=== PATIENT | female | born 1985 | race African-American/Black ===

== ENCOUNTER → 2016-09-09 | Outpatient (CLI) | payer BC ==
[2016-09-13 22:36] LABS: E001-IGE CAT DANDER 0.68 kU/L (Class II); E005-IGE DOG DANDER 2.41 kU/L (Class III); F026-IGE PORK <0.10 kU/L (Class 0); F027-IGE BEEF 0.19 kU/L (Class 0/I); G010-IGE JOHNSON GRASS >100 kU/L (Class VI); G017-IGE BAHIA GRASS >100 kU/L (Class VI); I100-IGE COCKROACHAMERICAN <0.10 kU/L (Class 0); M001-IGE PENICILLIUM CHRYSOGEN 1.35 kU/L (Class II); M002-IGE CLADOSPORIUM HERBARUM <0.10 kU/L (Class 0); M003-IGE ASPERGILLUS FUMIGATUS 2.08 kU/L (Class III); M004-IGE MUCOR RACEMOSUS <0.10 kU/L (Class 0); M006-IGE ALTERNARIA ALTERNATA 0.26 kU/L (Class 0/I); M010-IGE STEMPHYLIUM HERBARUM 1.12 kU/L (Class II); T001-IGE MAPLE/BOX ELDER 0.24 kU/L (Class 0/I); T003-IGE BIRCH SILVER 1.34 kU/L (Class II); T006-IGE CEDAR MOUNTAIN 0.15 kU/L (Class 0/I); T007-IGE OAK WHITE 1.26 kU/L (Class II); T008-IGE ELM AMERICAN (WHITE 0.81 kU/L (Class II); T011-IGE MAPLE LEAF SYCAMORE 1.41 kU/L (Class III); T211-IGE SWEET GUM 0.41 kU/L (Class I); W001-IGE RAGWEED SHORT/COMMO 4.78 kU/L (Class IV); W006-IGE MUGWORT 1.66 kU/L (Class III); W018-IGE SHEEP SORREL(DOCK) 1.72 kU/L (Class III); W020-IGE NETTLE 0.79 kU/L (Class II)
[2016-09-14 07:09] LABS: F052-IGE CHOCOLATE/COCOA <0.10 kU/L (Class 0)
== END ==
LOC: OD 12:01
PROVIDERS: ATTEND Otolaryngology
DX: J30.89 Other allergic rhinitis (principal)
CPT/HCPCS: 36415; 86003

== ENCOUNTER 2016-11-27 22:55 | Emergency (ER) | payer BC ==
[2016-11-27 23:01] VITALS: BP 127/83
[2016-11-27] MEDS ORDERED: PROMETHAZINE HCL 25 MG TABLET PO ONE (23:43)
[2016-11-27] MEDS ORDERED: DIPHENHYDRAMINE HCL 25 MG CAPSULE PO ONE (23:43)
[2016-11-27] MEDS ORDERED: AMOXICILLIN TRIHYDRATE 500 MG CAPSULE PO ONE (23:44)
--- NOTE | 2016-11-27 23:50 | ER Document Report ---
ED General - General Chief Complaint: Headache Stated Complaint: HEADACHE Time Seen by Provider: 11/27/16 23:36 Notes: Patient is a 31-year-old female presents with complaint of toothache and headache. She says the headaches are something that she deals with on a consistent basis. They are always in her bilateral confucianist area and then she has pressure come across her sinuses and between her eyes. She says that she has a lot of sinus issues. She says that she is felt to take. Her left with some tooth is coming in awkward. She says this is been hurting her more and making her headaches worse as well. She has been to see a oral surgeon. She has missed 2 appointments with the oral surgeon and therefore they will not give her another appointment just to find a new dentist. She is taking tramadol , Vicodin, and has been placing BC powder over the tooth itself. No difficulty breathing or swallowing. No fevers. No other complaints at this time. No focal weakness or numbness. No vomiting. TRAVEL OUTSIDE OF THE [place] IN LAST 30 DAYS: No - Related Data Allergies/Adverse Reactions: No Known Allergies Allergy (Unverified 04/16/16 08:41) Past Medical History - Social History Smoking Status: Current Every Day Smoker Chew tobacco use (# tins/day): No Frequency of alcohol use: Social Drug Abuse: None Family History: Reviewed & Not Pertinent Patient has suicidal ideation: No Patient has homicidal ideation: No - Past Medical History Cardiac Medical History: Denies: Hx Coronary Artery Disease, Hx Heart Attack, Hx Hypertension Pulmonary Medical History: Denies: Hx Asthma, Hx COPD, Hx Pneumonia Neurological Medical History: Reports: Hx Migraine. Denies: Hx Cerebrovascular Accident, Hx Seizures Renal/ Medical History: Denies: Hx Peritoneal Dialysis Musculoskeltal Medical History: Denies Hx Arthritis Past Surgical History: Reports: Hx Cholecystectomy. Denies: Hx Hysterectomy - Immunizations Hx Diphtheria, Pertussis, Tetanus Vaccination: No Review of Systems - Review of Systems Notes: My Normal Review Basic REVIEW OF SYSTEMS: CONSTITUTIONAL : Denies fever, chills, or sweats. Denies recent illness. EENT: Tooth pain CARDIOVASCULAR: Denies chest pain. RESPIRATORY: Denies cough, cold, or chest congestion. Denies shortness of breath, difficulty breathing, or wheezing. GASTROINTESTINAL: Denies abdominal pain. Denies nausea, vomiting, or diarrhea. Denies constipation. Last BM: MUSCULOSKELETAL: Denies neck or back pain or joint pain or swelling. SKIN: Denies rash or skin lesions. NEUROLOGICAL: Denies altered mental status or loss of consciousness. Has a headache. Denies weakness or paralysis or loss of use of either side. Denies problems with gait or speech. Denies sensory or motor loss. ALL OTHER SYSTEMS REVIEWED AND NEGATIVE. Physical Exam - Vital signs Vitals: Temp Pulse Resp BP Pulse Ox 98.0 F 87 16 127/83 H 99 11/27/16 23:00 11/27/16 23:00 11/27/16 23:00 11/27/16 23:00 11/27/16 23:00 - Notes Notes: General Appearance: Well nourished, alert, cooperative, no acute distress, mild to moderate obvious discomfort. Vitals: reviewed, See vital signs table. Head: no swelling or tenderness to the head Eyes: PERRL, EOMI, Conjuctiva clear Mouth: Left lower wisdom tooth is coming in an awkward angle. No gingival swelling. Patient does have white powder type erosion of the gumline from where she has been placing BC powder over the area. Throat: No tonsillar inflammation, No airway obstruction, No lymphadenopathy Neck: Supple, no neck tenderness Extremities: strength 5/5 in all extremities, Skin: warm, dry, appropriate color, no rash Neuro: speech clear, oriented x 3, normal affect, responds appropriately to questions. Cranial nerves II through XII are intact. Distal sensation intact. Patient was lower extremities without difficulty. Course - Vital Signs Vital signs: Temp Pulse Resp BP Pulse Ox 98.0 F 87 16 127/83 H 99 11/27/16 23:00 11/27/16 23:00 11/27/16 23:00 11/27/16 23:00 11/27/16 23:00 - Transfer of Care Notes: 11/27/16 23:55 Patient will be placed on amoxicillin for the tooth. I will start her on Phenergan with Benadryl to help deal with her headaches. I encourage her to stop taking multiple different pain medications. I informed it is okay to take BC powder but she should take it in a normal manner and not just applied to the gum and tooth as this will cause more damage to the gumline itself. I encouraged her to follow-up closely with the dentist. Encouraged to return to ER if she has worsening pain or feels unwell. Patient agrees with plan and will be discharged home. Dictation of this chart was performed using voice recognition software; therefore, there may be some unintended grammatical errors. Discharge - Discharge Clinical Impression: Toothache Headache Qualifiers: Headache type: unspecified Headache chronicity pattern: episodic headache Intractability: not intractable Qualified Code(s): R51 - Headache Condition: Good Disposition: HOME, SELF-CARE Additional Instructions: Please follow up closely with a dentist. Please return to the ER immediately if you develop worsening pain, facial swelling, vomiting, fevers, or feel uwnell. Take 25mg of Benadryl with 1 tab of phenergan every 6 hours for headache. The combination of Benadryl with phenergan will make you sleepy. Do not drive or operate machinery after taking these medications. Prescriptions: Amoxicillin Trihydrate [Amoxil 500 mg Capsule] 500 mg PO TID #21 cap Promethazine HCl [Phenergan 25 mg Tablet] 1 tab PO Q6H PRN #15 tablet PRN Reason:
== END 2016-11-28 00:15 | disposition home or self-care (01) ==
LOC: ER 22:55
DX: R51 Headache (principal); K08.89 Other specified disorders of teeth and supporting structures; F17.200 Nicotine dependence, unspecified, uncomplicated
CPT/HCPCS: 99283

== ENCOUNTER 2017-01-26 15:00 | Emergency (ER) | payer BC ==
[2017-01-26 15:23] VITALS: BP 138/89
--- NOTE | 2017-01-26 15:58 | ER Document Report ---
HPI - HPI Patient complains to provider of: Left sided neck and back pain Onset: Last week Onset/Duration: Gradual Quality of pain: Achy Severity: Moderate Pain Level: 3 Context: Patient complains of left-sided neck and back pain for about 1 week. Patient currently works 3 jobs and she is not sure if she may have lifted something wrong or any other known injury. She reports history of back spasms in the past. Denies recent illness, no fever. Patient is requesting a work note until next Wednesday. Associated Symptoms: None Exacerbated by: Movement Relieved by: Remaining still Similar symptoms previously: Yes Recently seen / treated by doctor: No - ROS ROS below otherwise negative: Yes Systems Reviewed and Negative: Yes All other systems reviewed and negative - CONSTITUTIONAL Constitutional: DENIES: Fever - EENT EENT: DENIES: Congestion - NEURO Neurology: DENIES: Headache - CARDIOVASCULAR Cardiovascular: DENIES: Chest pain - RESPIRATORY Respiratory: DENIES: Trouble Breathing - GASTROINTESTINAL Gastrointestinal: DENIES: Abdominal Pain - MUSCULOSKELETAL Musculoskeletal: REPORTS: Back Pain, Neck Pain - DERM Skin Color: Normal Skin Problems: None Past Medical History - General Information source: Patient - Social History Smoking Status: Current Every Day Smoker Cigarette use (# per day): Yes Frequency of alcohol use: Occasional Drug Abuse: None Lives with: Family Family History: Reviewed & Not Pertinent Patient has suicidal ideation: No Patient has homicidal ideation: No Pulmonary Medical History: Reports: Hx Asthma - seasonal Neurological Medical History: Reports: Hx Migraine Past Surgical History: Reports: Hx Cholecystectomy - Immunizations Hx Diphtheria, Pertussis, Tetanus Vaccination: No Vertical Provider Document - CONSTITUTIONAL Agree With Documented VS: Yes General Appearance: WD/WN, No Apparent Distress - INFECTION CONTROL TRAVEL OUTSIDE OF THE [place] IN LAST 30 DAYS: No - HEENT HEENT: Atraumatic, Normocephalic - NECK Neck: Normal Inspection, Supple - RESPIRATORY Respiratory: Breath Sounds Normal, No Respiratory Distress O2 Sat by Pulse Oximetry: 99 - CARDIOVASCULAR Cardiovascular: Regular Rate, Regular Rhythm - GI/ABDOMEN Gastrointestinal: Abdomen Soft - MUSCULOSKELETAL/EXTREMETIES Musculoskeletal/Extremeties: MAEW, Tender - Left cervical muscles across the left shoulder. Also tender L spine and paraspinal muscles. Patient feels a pulling sensation to left side of back with straight leg raises. - NEURO Level of Consciousness: Awake, Alert, Appropriate - DERM Integumentary: Warm, Dry Course - Vital Signs Vital signs: Temp Pulse Resp BP Pulse Ox 98.3 F 78 16 138/89 H 99 01/26/17 15:21 01/26/17 15:21 01/26/17 15:21 01/26/17 15:21 01/26/17 15:21 Discharge - Discharge Clinical Impression: Cervical strain Qualifiers: Encounter type: initial encounter Qualified Code(s): S16.1XXA - Strain of muscle, fascia and tendon at neck level, initial encounter Back pain Qualifiers: Back pain location: low back pain Chronicity: acute Back pain laterality: left Sciatica presence: without sciatica Qualified Code(s): M54.5 - Low back pain Condition: Good Disposition: HOME, SELF-CARE Instructions: Ice Packs ([facility]), Oral Narcotic Medication ([facility]), Warm Packs ([facility]) , Muscle Strain ([facility]) Additional Instructions: Take meds as prescribed Ibuprofen that you already have at home 3 times a day. Ice or heat packs No heavy lifting. Follow-up with your doctor if not better by Wednesday, earlier if symptoms worsen. Return as needed Prescriptions: Hydrocodone/Acetaminophen [[place] 5-325 mg Tablet] 1 tab PO PRN PRN #15 tablet PRN Reason: Metaxalone [Skelaxin 800 mg Tablet] 800 mg PO ASDIR PRN #20 tablet PRN Reason: Forms: Return to Work
== END 2017-01-26 16:24 | disposition home or self-care (01) ==
LOC: ER 15:00
DX: S16.1XXA Strain of muscle, fascia and tendon at neck level, initial encounter (principal); M54.5 Low back pain; M54.2 Cervicalgia; M54.9 Dorsalgia, unspecified; F17.210 Nicotine dependence, cigarettes, uncomplicated; X50.9XXA Other and unspecified overexertion or strenuous movements or postures, initial encounter
CPT/HCPCS: 99283

== ENCOUNTER 2017-02-19 16:23 | Emergency (ER) | payer BC ==
--- NOTE | 2017-02-19 17:50 | ER Document Report ---
HPI - HPI Patient complains to provider of: Back pain Onset: Other Onset/Duration: Intermittent Quality of pain: Achy Severity: Moderate Pain Level: 4 Context: Patient states initial injury to back was back in January, and she was seen at the urgent care across from [facility]. X-ray showed no abnormality. Continues to have intermittent mid to low back pain without new injury. Denies loss of control of bowels or bladder. Has not followed up with her primary care doctor. Associated Symptoms: None Exacerbated by: Movement Relieved by: Remaining still Similar symptoms previously: Yes Recently seen / treated by doctor: Yes - january - ROS ROS below otherwise negative: Yes Systems Reviewed and Negative: Yes All other systems reviewed and negative - CONSTITUTIONAL Constitutional: DENIES: Fever - EENT EENT: DENIES: Congestion - NEURO Neurology: DENIES: Headache - CARDIOVASCULAR Cardiovascular: DENIES: Chest pain - RESPIRATORY Respiratory: DENIES: Trouble Breathing - GASTROINTESTINAL Gastrointestinal: DENIES: Abdominal Pain - URINARY Urinary: DENIES: Dysuria, Urgency, Frequency - MUSCULOSKELETAL Musculoskeletal: REPORTS: Back Pain - DERM Skin Color: Normal Past Medical History - General Information source: Patient - Social History Smoking Status: Current Every Day Smoker Cigarette use (# per day): Yes Frequency of alcohol use: Occasional Drug Abuse: None Lives with: Family Family History: Reviewed & Not Pertinent Pulmonary Medical History: Reports: Hx Asthma - seasonal Neurological Medical History: Reports: Hx Migraine Past Surgical History: Reports: Hx Cholecystectomy - Immunizations Hx Diphtheria, Pertussis, Tetanus Vaccination: No Vertical Provider Document - CONSTITUTIONAL Agree With Documented VS: Yes Exam Limitations: No Limitations General Appearance: WD/WN, No Apparent Distress - INFECTION CONTROL TRAVEL OUTSIDE OF THE [place] IN LAST 30 DAYS: No - HEENT HEENT: Atraumatic, Normocephalic - RESPIRATORY Respiratory: Breath Sounds Normal, No Respiratory Distress O2 Sat by Pulse Oximetry: 99 - CARDIOVASCULAR Cardiovascular: Regular Rate, Regular Rhythm - BACK Notes: Tender mid spine to upper lumbar spine and paraspinous muscles. Mild discomfort with leg raises bilaterally. No saddle anesthesia. - MUSCULOSKELETAL/EXTREMETIES Musculoskeletal/Extremeties: MAEW - NEURO Level of Consciousness: Awake, Alert, Appropriate - DERM Integumentary: Warm, Dry Course - Re-evaluation Re-evalutation: 02/19/17 17:50 Patient refused Toradol injection. Discussed with patient that the emergency room does not refill pain medications as she was given Glendo in the past. - Vital Signs Vital signs: Temp Pulse Resp BP Pulse Ox 98.1 F 88 18 127/81 H 99 02/19/17 16:27 02/19/17 16:27 02/19/17 16:27 02/19/17 16:27 02/19/17 16:27 Discharge - Discharge Clinical Impression: Back pain Qualifiers: Back pain location: back pain in unspecified location Chronicity: unspecified Back pain laterality: midline Qualified Code(s): M54.89 - Other dorsalgia Condition: Good Disposition: HOME, SELF-CARE Instructions: Ice Packs ([facility]), Warm Packs ([facility]), Low Back Pain ([facility]) Additional Instructions: meds as prescribed OTC ibuprofen or aleve for pain you must follow up with your PCP for further evaluation possible referral for ongoing back pain without new injury. return as needed Prescriptions: Cyclobenzaprine HCl [Flexeril 5 mg Tablet] 5 mg PO TID #15 tablet Prednisone [Deltasone 10 mg Tablet] 10 mg PO ASDIR #21 tablet Tramadol HCl 50 mg PO PRN PRN #10 tablet PRN Reason: Forms: Return to Work
[2017-02-19 18:18] VITALS: BP 120/72
== END 2017-02-19 18:14 | disposition home or self-care (01) ==
LOC: ER 16:23
DX: M54.89 Other dorsalgia (principal); M54.9 Dorsalgia, unspecified; F17.210 Nicotine dependence, cigarettes, uncomplicated
CPT/HCPCS: 99283

== ENCOUNTER 2019-02-26 00:22 | Emergency (ER) | payer BC ==
[2019-02-26] MEDS ORDERED: NORMAL SALINE 1000 ML 1,000 ML IV ONE (02:42)
[2019-02-26] MEDS ORDERED: MORPHINE SULFATE 10 MG/ML INJ IV ONE ×2 (02:42→06:35)
[2019-02-26] MEDS ORDERED: ONDANSETRON HCL INJ/PF 4 MG/2 ML SDV IV ONE ×2 (02:42→06:35)
--- NOTE | 2019-02-26 02:47 | ER Document Report ---
ED GI/ - General Chief Complaint: Abdominal Pain Stated Complaint: ABDOMINAL PAIN Time Seen by Provider: 02/26/19 02:36 Primary Care Provider: [facility] [Provider Group] - Follow up as needed Notes: Patient is a 34-year-old female that comes to the emergency department for chief complaint of sharp pains in her lower abdomen on both sides and in the middle. She reports nausea but denies vomiting. She had a loose bowel movement yesterday. She denies fever. She has had a cholecystectomy, she denies abdominal surgeries otherwise. She denies any daily medications. She is sexually active. She denies dysuria, vaginal bleeding or discharge. She reports some pain in her back on both sides in the lower part as well. TRAVEL OUTSIDE OF THE [place] IN LAST 30 DAYS: No - Related Data Allergies/Adverse Reactions: No Known Allergies Allergy (Verified 02/19/17 16:28) Past Medical History - General Information source: Patient - Social History Smoking Status: Current Some Day Smoker Frequency of alcohol use: None Drug Abuse: None Lives with: Family Family History: Reviewed & Not Pertinent Patient has suicidal ideation: No Patient has homicidal ideation: No Pulmonary Medical History: Reports: Hx Asthma - seasonal Neurological Medical History: Reports: Hx Migraine Renal/ Medical History: Denies: Hx Peritoneal Dialysis Past Surgical History: Reports: Hx Cholecystectomy - Immunizations Hx Diphtheria, Pertussis, Tetanus Vaccination: Yes Review of Systems - Review of Systems Constitutional: No symptoms reported EENT: No symptoms reported Cardiovascular: No symptoms reported Respiratory: No symptoms reported Gastrointestinal: See HPI Genitourinary: See HPI Female Genitourinary: No symptoms reported Musculoskeletal: No symptoms reported Skin: No symptoms reported Hematologic/Lymphatic: No symptoms reported Neurological/Psychological: No symptoms reported Physical Exam - Vital signs Vitals: Temp Pulse Resp BP Pulse Ox 98.4 F 90 16 110/70 98 02/26/19 00:27 02/26/19 00:27 02/26/19 00:27 02/26/19 00:27 02/26/19 00:27 - Notes Notes: GENERAL: Alert, interacts well. No acute distress. HEAD: Normocephalic, atraumatic. EYES: Pupils equal, round, and reactive to light. Extraocular movements intact. ENT: Oral mucosa moist, tongue midline. Oropharynx unremarkable. Airway patent. LUNGS: Clear to auscultation bilaterally, no wheezes, rales, or rhonchi. No respiratory distress. HEART: Regular rate and rhythm. No murmur ABDOMEN: Tender in the suprapubic area, mid lower abdomen, and bilateral lower abdomen. No specific guarding. Upper abdomen is completely benign. GENITOURINARY: Normal external exam, no cervical motion tenderness, no noted discharge, no concerning findings or lesions. Exam performed with Susan HDEZ at bedside. EXTREMITIES: Moves all 4 extremities spontaneously. No edema, normal radial and dorsalis pedis pulses bilaterally. No cyanosis. BACK: no cervical, thoracic, lumbar midline tenderness. No saddle anesthesia, normal distal neurovascular exam. NEUROLOGICAL: Alert and oriented x3. Normal speech. Cranial nerves II through XII grossly intact. PSYCH: Normal affect, normal mood. SKIN: Warm, dry, normal turgor. No rashes or lesions noted. Course - Re-evaluation Re-evalutation: Patient looks well. However she does have lower abdominal tenderness on both sides. Upper abdomen is benign. No CVA tenderness. No fever. Unremarkable vital signs. There was a long delay in obtaining laboratory results because of laboratory back-up, however finding this was obtained. CBC shows leukocytosis at 20,000, elevation of neutrophils but no bandemia. Chemistry nonspecific. test negative. Urinalysis indicates infection, culture placed. Started on Rocephin. Wet mount shows bacteria and white blood cells although this is inconsistent with patient's very benign appearing pelvic examination. Gonorrhea and Chlamydia are negative. CAT scan was performed to rule out acute appendicitis because of leukocytosis and repeated pain on recheck of patient's abdomen. CAT scan showing 3.5 cm abnormality but no acute appendicitis, no infection, no concerning findings otherwise. I discussed with patient, decision was made to perform ultrasound. Ultrasound showing uterine fibroid. No other concerning findings. Discussed with patient. Decision was made to treat her with doxycycline and Flagyl for both urine and pelvic coverage, she will follow-up with primary care/[facility], she will return if she worsens in any way. Patient states understanding and agreement. - Vital Signs Vital signs: Temp Pulse Resp BP Pulse Ox 98.2 F 85 16 106/62 98 02/26/19 06:15 02/26/19 06:15 02/26/19 06:15 02/26/19 06:15 02/26/19 06:15 - Laboratory Result Diagrams: 02/26/19 03:25 02/26/19 03:25 Laboratory results interpreted by me: 02/26/19 02/26/19 02/26/19 03:25 03:25 03:44 WBC 20.4 H Lymphocytes % (Manual) 9 L Monocytes % (Manual) 14 H Abs Neuts (Manual) 15.5 H Abs Monocytes (Manual) 2.9 H Potassium 3.5 L Total Bilirubin 1.4 H Urine Blood SMALL H Ur Leukocyte Esterase LARGE H Discharge - Discharge Clinical Impression: Lower abdominal pain Condition: Stable Disposition: HOME, SELF-CARE Additional Instructions: Your evaluation shows a urinary tract infection, you are being covered for potential pelvic infection although no STDs or concerning findings are seen in regards to this. Your ultrasound shows a fibroid on the outside of your uterus as well. Follow-up with [facility] for this. Take antibiotics as prescribed, take pain medication if needed, take nausea medication if needed, drink plenty fluids and rest. Symptoms should resolve with time. Return if you worsen including vomiting, fever, severe worsening pain, or any other concerning or worsening symptoms. Prescriptions: Doxycycline Hyclate 100 mg PO BID #14 capsule Metronidazole [Flagyl 500 mg Tablet] 500 mg PO BID 7 Days #14 tablet Hydrocodone/Acetaminophen [[place] 5-325 mg Tablet] 1 - 2 tab PO ASDIR PRN #12 tablet PRN Reason: Ondansetron [Zofran Odt 4 mg Tablet] 1 - 2 tab PO Q4H PRN #15 tab.rapdis PRN Reason: For Nausea/Vomiting Forms: Return to Work Referrals: [facility] [Provider Group] - Follow up as needed
[2019-02-26 04:33] LABS: HEMATOCRIT 37.8 % (36.0-47.0); HEMOGLOBIN 12.5 g/dL (12.0-15.5); MEAN CORPUSCULAR HEMOGLOBIN 29.6 pg (27.0-33.4); MEAN CORPUSCULAR VOLUME 90 fl (80-97); PLATELET COUNT 301 10^3/uL (150-450); RED CELL DISTRIBUTION WIDTH 13.4 % (11.5-14.0); WHITE BLOOD COUNT 20.4 10^3/uL (4.0-10.5)
[2019-02-26 04:35] LABS: BACTERIA (WET MOUNT) 4+ BACTERIA SEEN; EPITHELIALS (WET MOUNT) 4+ EPITHELIALS SEEN; RBCS (WET MOUNT) NO RBCS SEEN; T.VAGINALIS (WET MOUNT) COULD NOT PERFORM; WBCS (WET MOUNT) 3+ WBCS SEEN; YEAST (WET MOUNT) NO YEAST SEEN
[2019-02-26 04:45] LABS: APPEARANCE,URINE SLIGHTLY-CLOUDY; BILIRUBIN,URINE NEGATIVE (NEGATIVE); COLOR,URINE YELLOW; GLUCOSE, URINE NEGATIVE (NEGATIVE); KETONES,URINE NEGATIVE (NEGATIVE); LEUKOCYTE ESTERASE,URINE LARGE (NEGATIVE); NITRITE,URINE NEGATIVE (NEGATIVE); PROTEIN,URINE NEGATIVE (NEGATIVE); URINE SPECIFIC GRAVITY 1.005; UROBILINOGEN,URINE NEGATIVE mg/dL (<2.0)
[2019-02-26 04:52] LABS: ALBUMIN 4.3 g/dL (3.5-5.0); ALKALINE PHOSPHATASE 82 U/L (38-126); ANION GAP 13 (5-19); ASPARTATE AMINO TRANSFERASE 18 U/L (14-36); BILIRUBIN,DIRECT 0.3 mg/dL (0.0-0.4); BILIRUBIN,TOTAL 1.4 mg/dL (0.2-1.3); BLOOD UREA NITROGEN 7 mg/dL (7-20); CALCIUM 9.7 mg/dL (8.4-10.2); CARBON DIOXIDE 24 mmol/L (22-30); CHLORIDE 102 mmol/L (98-107); GLUCOSE 87 mg/dL (75-110); POTASSIUM 3.5 mmol/L (3.6-5.0); TOTAL PROTEIN 7.2 g/dL (6.3-8.2)
[2019-02-26 04:56] LABS: ABSOLUTE MONOCYTES # (MANUAL) 2.9 10^3/uL (0.1-1.4); BASOPHILS % (MANUAL) 0 % (0-2); EOSINOPHILS % (MANUAL) 0 % (0-6); LYMPHOCYTES % (MANUAL) 9 % (13-45); MONOCYTES % (MANUAL) 14 % (3-13); RBC MORPHOLOGY COMMENT NORMO-CYTIC/CHROMIC; SEGMENTED NEUTROPHILS % (MAN) 76 % (42-78); TOTAL CELLS COUNTED 100
[2019-02-26 04:57] LABS: PLATELET COMMENT ADEQUATE
[2019-02-26 05:58] LABS: CHLAM PCR NOT DETECTED (NOT DETECT)
--- NOTE | 2019-02-26 06:30 | RADIOLOGY REPORT (SQ) ---
EXAM: CT abdomen and pelvis with IV contrast CLINICAL DATA: 34-year-old female with lower abdominal pain and leukocytosis TECHNICAL DATA: Axial CT imaging of the abdomen and pelvis was performed following the administration of intravenous contrast.. Sagittal and coronal reconstructed images were then performed. The CT study is performed according to ALARA (as low as reasonably achievable) or ALARA/IMAGE GENTLY, with automatic adjustment of mA and/or kV according to patient size. Performed on: 02/26/2019 at 5:57 AM. Comparison: None FINDINGS: Lung bases: The lung bases are clear. Liver:The liver is normal in size and configuration. No focal hepatic abnormalities are identified. Liver attenuation is within normal limits. Spleen:The spleen is normal is size, configuration and attenuation. Gallbladder and bile duct: The gallbladder is well-visualized and is likely surgically absent. There is no biliary ductal dilatation. Pancreas: The pancreas is grossly normal in size and configuration. Adrenal Glands:The adrenal glands are normal in size and configuration. Kidneys:The kidneys are normal in size and configuration. There is no evidence of hydronephrosis. There is no evidence of nephrolithiasis. No definite solid or cystic renal mass lesions are identified. Stomach:The stomach is grossly normal. There is no definite hiatal hernia. Bowel:The bowel gas pattern is non specific and non obstructive. Appendix: The appendix is normal. Free air:There is no evidence of free air. Free fluid: There is no evidence of free fluid. Vasculature: The aorta is normal in caliber and contour. The inferior vena cava is grossly unremarkable. Lymphadenopathy: No pathologic lymphadenopathy is identified. Bladder: The bladder is well distended and smooth in contour. Reproductive: The uterus is grossly within normal limits. There is a 3.4 x 3.0 x 3.1 cm solid mass in the anterior left hemipelvis possibly ovarian in nature. An exophytic uterine fibroid is a consideration. Additionally, there is a 2.0 x 1.6 x 1.5 cm right adnexal cyst likely representing a dominant ovarian follicle. Bones: No acute osseous abnormalities are identified. Soft tissues: No focal soft tissue abnormalities are identified. IMPRESSION: 1. There is a 3.4 cm solid mass in the anterior left hemipelvis possibly ovarian in nature. An exophytic uterine fibroid is a consideration. Recommend prompt follow-up with pelvic ultrasound. 2. Nonvisualization of the gallbladder which is likely surgically absent. 3. Otherwise, no evidence of acute intra-abdominal or intrapelvic pathology. There is no CT evidence of acute appendicitis, urinary tract obstruction or bowel obstruction
[2019-02-26] MEDS ORDERED: CEFTRIAXONE 1 GM/D5W RTU 1 GM/50 ML RTUPB IV ONE (06:31)
--- NOTE | 2019-02-26 08:02 | RADIOLOGY REPORT (SQ) ---
EXAM: Ultrasound pelvis transvaginal CLINICAL DATA: 34-year-old female with abdominal pain and leukocytosis and left adnexal mass on recent CT scan. TECHNICAL DATA: Ultrasound imaging of the pelvis was performed endovaginally on 02/26/2019 at 7:11 AM. COMPARISONS: CT abdomen and pelvis performed on 02/26/2019 at 5:57 AM FINDINGS: The uterus is normal in size, shape and echogenicity and measures 8.4 x 4.1 x 4.6 cm. The endometrial complex measures 0.7 cm in thickness. There is no endometrial fluid. The cervix measures 3 cm in length. There is a hypoechoic mass arising from the region of the uterine fundus to the left of midline with minimal internal Doppler vascularity measuring 3.3 x 3.0 x 3.5 cm corresponding to the abnormality noted on the prior CT scan. An exophytic subserosal uterine fibroid is suspected. The right ovary measures 3.2 x 2.6 x 2.9 cm. The right ovary contains normal follicles. There is a dominant follicle measuring 2.0 x 1.4 x 1.8 cm. Doppler imaging demonstrates normal pulsed and color Doppler flow. The left ovary measures 3.1 x 1.5 x 1.3 cm. The left ovary contains normal follicles. There is a dominant follicle measuring 1.1 x 0.6 x 1.1 cm. Doppler imaging demonstrates normal pulsed and color Doppler flow. There is no free fluid in the pelvis. IMPRESSION: 1. Sonographic findings suggest an exophytic subserosal uterine fibroid arising from the fundus to the left of midline with a maximum dimension of 3.5 cm. 2. Dominant follicle arising from the right ovary with a maximum dimension of 2 cm. No follow-up imaging is recommended. 3. Otherwise, unremarkable pelvic ultrasound.
[2019-02-26 08:31] VITALS: BP 117/63
== END 2019-02-26 08:43 | disposition home or self-care (01) ==
LOC: ER 00:22
DX: R10.30 Lower abdominal pain, unspecified (principal); R11.0 Nausea; F17.200 Nicotine dependence, unspecified, uncomplicated; Z90.49 Acquired absence of other specified parts of digestive tract
CPT/HCPCS: 96376; 99284; 96361; 96375; 96365; 36415; 87210; 85025; 81025; 80053; 81001; 87491; 87591; 76830; 93976; 74177; J2270; J2405; J7030; J0696

== ENCOUNTER 2020-04-15 08:40 | Day surgery (SDC) | payer BC ==
[~2020-04-15 08:40] MED LIST: DEXAMETHASONE SOD PHOS INJ 10 MG/1 ML VIAL ONE; DEXMEDETOMIDINE INJ 80 MCG/20 ML VIAL IV ONE; EPHEDRINE SULFATE INJ 50 MG/1 ML AMPULE ONE; FAMOTIDINE INJ/PF 20 MG/2 ML SDV IV ONE; FENTANYL CITRATE INJ/PF 100 MCG/2 ML AMPUL ONE; GLYCOPYRROLATE INJ 0.4 MG/2 ML VIAL ONE; LACTATED RINGERS 1000 ML IV PRN; LIDOCAINE 0.5% INJ-PF (5 MG/ML) 50 ML SDV SUBCUT PRN; LIDOCAINE 2% INJ-PF (100 MG/5 ML) SYRINGE ONE; MIDAZOLAM 2 MG/2 ML INJ ONE; MORPHINE SULFATE 10 MG/ML INJ ONE; ONDANSETRON HCL INJ/PF 4 MG/2 ML SDV ONE; PROPOFOL INJ 200 MG/20 ML VIAL IV ONE; SUCCINYLCHOLINE CHLORIDE INJ 200 MG/10 ML VIAL ONE
[2020-04-15] MEDS ORDERED: CEFAZOLIN 2 GM/D5W RTU 2 GM/50 ML RTUPB IV PRN (09:29)
[2020-04-15] MEDS ORDERED: SCOPOLAMINE HYDROBROMIDE 1.5 MG PATCH.TD72 TD PRN (09:30)
[2020-04-15] MEDS ORDERED: BACITRACIN ZINC OINTMENT 15 GM ONE (09:49)
[2020-04-15] MEDS ORDERED: BUPIVACAINE HCL 0.5%/EPI 1:200000 INJ 1.8 ML CARTRIDGE ONE (09:49)
[2020-04-15] MEDS ORDERED: OXYMETAZOLINE HCL 0.05% NASAL SPRAY 15 ML BOTTLE ONE (09:49)
[2020-04-15] MEDS ORDERED: MINERAL OIL (STERILE) 10 ML VIAL ONE (09:49)
[2020-04-15] MEDS ORDERED: LIDOCAINE 1%/EPINEPHRINE INJ 20 ML VIAL ONE (10:28)
[2020-04-15] MEDS ORDERED: ACETAMINOPHEN 1,000 MG/100 ML RTUPB IV ONE (13:25)
--- NOTE | 2020-04-20 08:26 | Operative Report ---
[facility]: DATE OF OPERATION: PREOPERATIVE DIAGNOSES: 1. Acute recurrent sinusitis/ARS 2. Nasal septal deviation, Acquired 3. Bilateral inferior turbinate hypertrophy 4. Nasal Deformities, Acquired 5. Chronic Nasal Dyspnea 6. Chronic rhinosinusitis/CRS 7. Right middle turbinate hypertrophy 8. Left middle turbinate lissy bullosa POSTOPERATIVE DIAGNOSES: 1. Acute recurrent sinusitis/ARS 2. Nasal septal deviation, Acquired 3. Bilateral inferior turbinate hypertrophy 4. Nasal Deformities, Acquired 5. Chronic Nasal Dyspnea 6. Chronic rhinosinusitis/CRS 7. Right middle turbinate hypertrophy 8. Left middle turbinate lissy bullosa PROCEDURES: 1. Image guidance functional endoscopic sinus surgery as follows: 2. Bilateral right maxillary antrostomies via bilateral transnasal rigid surgical endoscopy 3. Bilateral anterior ethmoidectomies via bilateral transnasal rigid surgical endoscopy 4. Bilateral frontal sinus balloon sinuplasty with irrigation via bilateral transnasal rigid surgical endoscopy 5. Bilateral sphenoid sinus balloon sinuplasty with irrigation via bilateral transnasal rigid surgical endoscopy 6. Right middle turbinate reduction using surgical sinus instrumentation and the microdebrider system 7. Left middle turbinate lissy bullosa reduction using surgical sinus instrumentation and the microdebrider system 8.. Bilateral intramural inferior turbinate reductions using submucus resection techniques SURGEON: Dr. Cameron Camacho Anesthesia Staff: ANESTHESIA: General endotracheal tube anesthesia/GETA DRAINS: None SPONGE COUNT: Verified NEEDLE COUNT: Verified SPECIMEN/MATERIALS FORWARD TO THE LAB: Right anterior ethmoid polyp appearing tissue for rule out polyps ESTIMATED BLOOD LOSS: 30 mL TOTAL IV FLUIDS: COMPLICATIONS: None FINDINGS: 1. Other than the right anterior ethmoid polyp appearing tissue there were no other findings concerning for sinonasal polyps or overt sinonasal polyps being present. There was no discharge or purulence noted. 2. The middle turbinates were enlarged bilateral. 3. Nasal septal deviations and bilateral inferior turbinate hypertrophy were noted. INDICATIONS: This is a 35-year-old -[place] female patient who was seen and evaluated in the [place] [facility] office. The patient was referred for and they complained of a history of chronic nasal dyspnea over the years. The patient has desired to undergo nasal surgery to improve functional nasal airflow and overall quality of life. The procedure, and all of the risks and complications were all discussed in detail with the patient. They voiced an understanding, agreed to proceed, and consent was obtained. DESCRIPTION OF OPERATIVE PROCEDURE: The patient was taken to the main operating room and placed on the operating room table in the supine position. Appropriate monitors were placed. Using mask and IV access general anesthesia was induced. The patient was then transorally intubated without difficulty. The table was next positioned for nasal surgery. The patient underwent a nasal examination and local anesthetic with epinephrine was administered to establish a nasal block. The patient next had two Afrin soaked neuropatties placed into each nasal passage. The patient was then prepped and draped in the usual fashion for nasal and sinus surgery. The neuropatties were removed and the patient underwent bilateral transnasal rigid surgical endoscopy with suctioning and intranasal injections with local anesthetic with epinephrine via a spinal needle around the lateral nasal sidewall and middle turbinates. Attention was now turned to performing bilateral inferior turbinate reductions. The turbinate bipolar wand was used to make 2 - 3 intramural passes in each inferior turbinate. At this point the turbinate microdebrider system at a setting of 1500 RPM was used to perform bilateral inferior turbinate submucus resections. This was followed by use of the [place] elevator to outfracture each inferior turbinate. Excessive/redundant mucosa at the anterior portion of the inferior turbinates was next trimmed with margins reapproximated with chromic suture. At this point the image guidance/IG functional endoscopic sinus surgery/FESS portion of the surgery was addressed in the following manner. Bilateral transnasal rigid surgical endoscopy and sinus surgical instrumentation to include a microdebrider system at a setting of 3000 RPM was utilized throughout this portion of the case. Findings are as noted above. A straight [place] clamp was used to create controlled fractures of the middle turbinate and lissy bullosa/middle turbinate. At this point the anterior portions were resected and the lissy bullosa was also addressed/reduced and the microdebrider was also utilized during this process. At this point the uncinate process was mobilized and removed and the bilateral maxillary antrostomies were performed without difficulty. Next, the bilateral anterior ethmoidectomies were performed without difficulty. On the right there was tissue that was identified concerning for polyp tissue which was passed off for permanent pathology evaluation. The image guidance balloon frontal sinus system was introduced on each side and inflated to 12 shawanda and multiple locations on each side. Once complete the balloon was deflated and the system removed from the patient's nose. Next, the image guidance sphenoid balloon sinuplasty system was introduced and inflated to 12 shawanda on each side at multiple locations. Once complete the balloon was deflated and the system was removed from the patient's nose. At this point there was irrigation performed within the frontal and sphenoid sinuses. There was extensive suctioning performed with reasonable hemostasis was noted. Posisep absorbable sinonasal packing was placed around the middle turbinate medial and lateral. Next, a modified Merocel pack with bacitracin and Afrin was placed into each nasal passage and then secured at the caudal aspect with 4-0 Prolene suture. The nose was then cleaned and dried. Next, the patient was returned to the anesthesia staff and was allowed to emerge from general anesthesia. The patient was extubated in the main operating room and was then transported to the postanesthesia recovery unit in stable condition. There were no complications.
== END 2020-04-15 14:30 | disposition home or self-care (01) ==
LOC: SC 08:40
PROVIDERS: ATTEND Otolaryngology
DX: J01.91 Acute recurrent sinusitis, unspecified (principal); J34.2 Deviated nasal septum; J34.3 Hypertrophy of nasal turbinates; J34.89 Other specified disorders of nose and nasal sinuses; J30.89 Other allergic rhinitis; R06.09 Other forms of dyspnea; J32.3 Chronic sphenoidal sinusitis; J33.8 Other polyp of sinus; Z03.818 Encounter for observation for suspected exposure to other biological agents ruled out; Z79.899 Other long term (current) drug therapy
CPT/HCPCS: 31256; 31254; 31298; 30802; 88305 ×2; 00160; C1726; C1778; C1769; U0003; J2250; J3490 ×5; J3010; J2001; J2270; J0330; J2405; J2704; S0028; J1100; J0690; J0131; C9803; 160; 87635